=== PATIENT | female | born 1990 | race Two or more races ===

== ENCOUNTER 2019-01-21 10:59 | Emergency (ER) | payer BC, OTHER ==
[~2019-01-21] VITALS: Ht 160 cm; Wt 77.1 kg
[~2019-01-21 10:59] MED LIST: BACTRIM DS TAB1 EAC1 ORAL; IBUPROFEN600 MG ORAL; IBUPROFEN800 MG ORAL; KEFLEX500 MG ORAL; NEURONTIN300 MG PO; NKM; NORCO 5-325 TA1 EACH ORAL; TRAMADOL HCL50 MG ORAL; VICODIN 5-5001 EACH ORAL; ZOFRAN ODT4 MG ORAL
[2019-01-21] MEDS ORDERED: PROPYLTHIOURACI50 M2 PO (11:09)
--- NOTE | 2019-01-21 11:10 | NUR ---
ED Nurse Note: Patient was brought in by her friend due to bilateral lower extremity weakness since last night, patient reports she first felt cramping on bilateral legs last night, and this morning, she was too weak to a point that she keeps on falling, mechanincal ground fall, denies hitting her head. patient needed wheelchair assistance. patient repors cramping sore pain on the bilateral legs and bilateral upper extremities. patient reports vomiting undigested food today. patient is alert awake x4 ambulatory, breathing unlabored and even.
[2019-01-21 11:20] VITALS: BP 126/77
--- NOTE | 2019-01-21 11:42 | Emergency Room Report ---
History of Present Illness General Chief Complaint: Generalized Weakness Source: Patient Present Illness HPI Patient is a 28-year-old female presents after increased generalized weakness. Patient reports having prior history of thyroid disease and takes some medication for this. She states she is had hyperthyroidism in the past. She reports having bilateral lower extremity weakness. She reports being able to ambulate somewhat this morning. She denies any recent trauma. She states that she has been having some episodes of vomiting. She denies any diarrhea. Patient reports having some diarrhea may be 2 days ago but denied any diarrhea currently. She reports having alcohol use approximately 2 days prior as well. Allergies: Coded Allergies: No Known Allergies (Unverified , 04/04/13) Patient History Past Medical History: see triage record Last Menstrual Period: december Now: No Reviewed Nursing Documentation: PMH: Agreed; PSxH: Agreed Review of Systems All Other Systems: negative except mentioned in HPI Physical Exam Vital Signs Date Time Temp Pulse Resp B/P (MAP) Pulse Ox O2 Delivery O2 Flow Rate FiO2 01/21/19 11:04 98.4 111 16 142/87 (105) 97 Room Air Sp02 EP Interpretation: reviewed, normal General Appearance: normal inspection, well appearing, no apparent distress, alert, GCS 15, non-toxic Head: atraumatic ENT: normal ENT inspection, hearing grossly normal, normal voice Neck: normal inspection, full range of motion, supple, no bony tend Respiratory: normal inspection, lungs clear, normal breath sounds, no respiratory distress, no retraction, no wheezing Cardiovascular #1: regular rate, rhythm, no edema Gastrointestinal: normal inspection, normal bowel sounds, non tender, soft, no guarding, no hernia Genitourinary: no CVA tenderness Musculoskeletal: normal inspection, back normal, normal range of motion Neurologic: normal inspection, alert, oriented x3, responsive, solar sales advisor III-XII nml as tested, speech normal, motor weakness - bilateral lower weakness Psychiatric: normal inspection, judgement/insight normal, mood/affect normal Skin: well hydrated Medical Decision Making Diagnostic Impression: Primary Impression: Hypokalemia Additional Impressions: Weakness Dehydration ER Course Patient presented for lower extremity discomfort and weakness. Differential diagnosis include was not limited to thyroid myopathy, hypokalemia, rhabdomyolysis, dehydration among others. Patient was noted to have laboratory testing which showed some evidence of hypo-kalemia. Patient given IV magnesium as well as oral potassium. She was noted to have improvement in her symptoms. Patient states she felt better and wanted to go home. Patient was noted to be able to move both lower extremities well after IV potassium. Patient was advised to follow-up with her greenhouse or nursery transplanter for re-evaluation of her thyroid medication. She is to return if worse. Patient was able to ambulate somewhat. The thyroid testing was ordered.Patient was noted to have some elevation of her T4 as well as low TSH level. Patient will be discharged home. Patient is to follow-up with primary care physician for recheck. Labs Test 01/21/19 11:45 White Blood Count 11.1 K/UL (4.8-10.8) Red Blood Count 5.26 M/UL (4.20-5.40) Hemoglobin 14.2 G/DL (12.0-16.0) Hematocrit 43.0 % (37.0-47.0) Mean Corpuscular Volume 82 FL (80-99) Mean Corpuscular Hemoglobin 27.0 PG (27.0-31.0) Mean Corpuscular Hemoglobin Concent 33.0 G/DL (32.0-36.0) Red Cell Distribution Width 11.6 % (11.6-14.8) Platelet Count 228 K/UL (150-450) Mean Platelet Volume 6.2 FL (6.5-10.1) Neutrophils (%) (Auto) 76.7 % (45.0-75.0) Lymphocytes (%) (Auto) 15.8 % (20.0-45.0) Monocytes (%) (Auto) 6.7 % (1.0-10.0) Eosinophils (%) (Auto) 0.2 % (0.0-3.0) Basophils (%) (Auto) 0.7 % (0.0-2.0) Prothrombin Time 10.4 SEC (9.30-11.50) Prothromb Time International Ratio 1.0 (0.9-1.1) Activated Partial Thromboplast Time 26 SEC (23-33) Urine Color Pale yellow Urine Appearance Clear Urine pH 5 (4.5-8.0) Urine Specific [place] 1.020 (1.005-1.035) Urine Protein Negative (NEGATIVE) Urine Glucose (UA) Negative (NEGATIVE) Urine Ketones Negative (NEGATIVE) Urine Blood Negative (NEGATIVE) Urine Nitrite Negative (NEGATIVE) Urine Bilirubin Negative (NEGATIVE) Urine Urobilinogen Normal MG/DL (0.0-1.0) Urine Leukocyte Esterase 1+ (NEGATIVE) Urine RBC 0 /HPF (0 - 2) Urine WBC 0-2 /HPF (0 - 2) Urine Squamous Epithelial Cells Few /LPF (NONE/OCC) Urine Bacteria Few /HPF (NONE) Sodium Level 141 MMOL/L (136-145) Potassium Level 3.3 MMOL/L (3.5-5.1) Chloride Level 108 MMOL/L (98-107) Carbon Dioxide Level 21 MMOL/L (21-32) Anion Gap 12 mmol/L (5-15) Blood Urea Nitrogen 9 mg/dL (7-18) Creatinine 0.4 MG/DL (0.55-1.30) Estimat Glomerular Filtration Rate > 60 mL/min (>60) Glucose Level 122 MG/DL (74-106) Calcium Level 9.0 MG/DL (8.5-10.1) Total Bilirubin 0.2 MG/DL (0.2-1.0) Aspartate Amino Transf (AST/SGOT) 20 U/L (15-37) Alanine Aminotransferase (ALT/SGPT) 22 U/L (12-78) Alkaline Phosphatase 122 U/L (46-116) Total Creatine Kinase 791 U/L (26-308) Troponin I 0.002 ng/mL (0.000-0.056) Total Protein 7.3 G/DL (6.4-8.2) Albumin 3.5 G/DL (3.4-5.0) Globulin 3.8 g/dL Albumin/Globulin Ratio 0.9 (1.0-2.7) Lipase 68 U/L (73-393) Urine Opiates Screen Negative (NEGATIVE) Urine Barbiturates Screen Negative (NEGATIVE) Phencyclidine (PCP) Screen Negative (NEGATIVE) Urine Amphetamines Screen Negative (NEGATIVE) Urine Benzodiazepines Screen Negative (NEGATIVE) Urine Cocaine Screen Negative (NEGATIVE) Urine Marijuana (THC) Screen Positive (NEGATIVE) Last Vital Signs Date Time Temp Pulse Resp B/P (MAP) Pulse Ox O2 Delivery O2 Flow Rate FiO2 01/21/19 11:21 105 21 Room Air 01/21/19 11:20 98.4 126/77 100 Status: improved Disposition: HOME, SELF-CARE Condition: Stable Referrals: [facility] KEVEN JV FATIMA (PCP) Kyrie Davenport MD Jan 21, 2019 11:42
[2019-01-21 11:53] LABS: BASOPHILS % (AUTO) 0.7 % (0.0-2.0); EOSINOPHILS % (AUTO) 0.2 % (0.0-3.0); HEMOGLOBIN 14.2 G/DL (12.0-16.0); LYMPHOCYTES % (AUTO) 15.8 % (20.0-45.0); MEAN CORPUSCULAR VOLUME 82 FL (80-99); MONOCYTES % (AUTO) 6.7 % (1.0-10.0); NEUTROPHILS % (AUTO) 76.7 % (45.0-75.0); PLATELET COUNT 228 K/UL (150-450); RED BLOOD COUNT 5.26 M/UL (4.20-5.40); RED CELL DISTRIBUTION WIDTH 11.6 % (11.6-14.8); WHITE BLOOD COUNT 11.1 K/UL (4.8-10.8)
[2019-01-21 11:56] LABS: APPEARANCE,URINE CLEAR; BILIRUBIN, URINE NEGATIVE (NEGATIVE); COLOR,URINE PALE YELLOW; GLUCOSE, URINE (UA) NEGATIVE (NEGATIVE); KETONES,URINE NEGATIVE (NEGATIVE); LEUKOCYTE ESTERASE ,URINE 1+ (NEGATIVE); NITRITE,URINE NEGATIVE (NEGATIVE); PH,URINE 5 (4.5-8.0); PROTEIN,URINE NEGATIVE (NEGATIVE); UROBILINOGEN,URINE NORMAL MG/DL (0.0-1.0)
[2019-01-21 12:06] LABS: ANION GAP 12 mmol/L (5-15); BLOOD UREA NITROGEN 9 mg/dL (7-18); CARBON DIOXIDE 21 MMOL/L (21-32); CHLORIDE 108 MMOL/L (98-107); CREATININE 0.4 MG/DL (0.55-1.30); POTASSIUM 3.3 MMOL/L (3.5-5.1); SODIUM 141 MMOL/L (136-145)
[2019-01-21 12:08] LABS: CREATINE KINASE 791 U/L (26-308)
[2019-01-21 12:11] LABS: ALANINE AMINOTRANSFERASE 22 U/L (12-78); ALBUMIN 3.5 G/DL (3.4-5.0); ALBUMIN/GLOBULIN RATIO 0.9 (1.0-2.7); ALKALINE PHOSPHATASE 122 U/L (46-116); ASPARTATE AMINO TRANSFERASE 20 U/L (15-37); BILIRUBIN,TOTAL 0.2 MG/DL (0.2-1.0)
[2019-01-21 13:10] VITALS: BP 121/61
[2019-01-21 13:42] VITALS: BP 126/77
--- NOTE | 2019-01-23 18:51 | Cardiology Report ---
APPROVED REPORT EKG Measurement Heart [id number] Normal sinus rhythm Normal ECG
== END 2019-01-21 13:42 | disposition home or self-care (01) ==
LOC: EMR 11:16
DX: E87.6 Hypokalemia (principal); R53.1 Weakness; E86.0 Dehydration; E05.90 Thyrotoxicosis, unspecified without thyrotoxic crisis or storm; R11.10 Vomiting, unspecified
CPT/HCPCS: 36415; 80053; 80307; 81003; 82550; 83690; 84439; 84443; 84484; 85025; 85610; 85730; 86850; 86900; 86901; 93005; 96361; 96365; 99284; J8499